=== PATIENT | male | born 1950 | race Caucasian/White ===

== ENCOUNTER 2021-01-27 10:00 | Day surgery (SDC) | payer OTHER ==
[~2021-01-27] VITALS: Ht 180.3 cm; Wt 965.9 kg
[2021-01-27] MEDS ORDERED: LEXAPRO5 MG PO (11:26)
[2021-01-27] MEDS ORDERED: LISINOPRIL10 MG PO (11:26)
[2021-01-27] MEDS ORDERED: ZOCOR10 MG PO (11:27)
[2021-01-27 11:39] VITALS: BP 114/73; Ht 180.3 cm; Wt 965.9 kg
--- NOTE | 2021-01-27 16:45 | NUR ---
DC INSTRUCTIONS GIVEN TO PT/SPOUSE. STATES UNDERSTANDING. DC'D IV CATH FULLY INTACT. PT WILL BE DC'D SHORTLY.
--- NOTE | 2021-01-27 16:46 | NUR ---
PT LEFT UNIT VIA WC AT 164
--- NOTE | 2021-02-23 10:24 | OP ---
PATIENT NAME: MITCHEL ENGLE MEDICAL RECORD: [id number] :50 LOCATION:D.OPS ADMISSION DATE: SURGEON: MIGUE VELÁZQUEZ MD DATE OF OPERATION: 01/27/2021 PREOPERATIVE DIAGNOSIS: Colon polyps POSTOPERATIVE DIAGNOSIS: Same, with five colorectal polyps ranging in size from 5 mm- to 1.8 cms. PROCEDURES: 1. Total colonoscopy to cecum. 2. Hot biopsy forceps polypectomies x5. 3. Application of endoscopic clip. 4. Hemostasis and tissue reinforcement x1. SURGEON: Migue Velázquez MD PHYTOPATHOLOGY TEACHER: None. BLOOD LOSS: Minimal. ANESTHESIA: IV sedation. COMPLICATIONS: None. DESCRIPTION OF PROCEDURE: The patient was conveyed to the endoscopy suite electively on 01/27/2021. IV sedation was induced by the anesthesia staff. The patient was placed in a position. A digital rectal examination was performed. A colonoscope was inserted through the anus. It was easily advanced to the cecum. The prep was adequate. I slowly withdrew the endoscope. I irrigated and aspirated extensively. I dragged the folds. I utilized normal imaging as well as narrow band imaging. Five hot biopsy forceps polypectomies were performed. These polyps were removed in their entireties. One polypectomy site was oozing a bit and needed some tissue reinforcement here as well and an endoscopic clip was deployed. I continued to withdraw the endoscope. A combination of normal imaging and narrow band imaging were utilized. A retroflexed view was obtained in the rectum. I then unretroflexed the scope and removed it under direct vision. I will see the patient in my office in 2 to 3 weeks. The patient will be on a surveillance colonoscopy regimen. TRANSINT:[id number] Voice Confirmation ID: [id number] DOCUMENT ID: [id number] MIGUE VELÁZQUEZ MD at 1024 CC: [id number] DICTATION DATE: 02/23/21 0737 CREATIVE CONSULTANT: 02/23/21 0904 [facility] 01/27/[address] [id number]
== END 2021-01-27 16:48 | disposition home or self-care (01) ==
LOC: D.OPS 10:00
PROVIDERS: ATTEND Surgery
DX: K63.5 Polyp of colon (principal); I10 Essential (primary) hypertension; N40.1 Benign prostatic hyperplasia with lower urinary tract symptoms; F32.9 Major depressive disorder, single episode, unspecified; E78.5 Hyperlipidemia, unspecified